=== PATIENT | male | born 2000 | race African-American/Black ===

== ENCOUNTER 2021-10-26 11:52 | Emergency (ER) | payer SELFPAY ==
[~2021-10-26] VITALS: Ht 180.3 cm; Wt 111.0 kg
[2021-10-26] VITALS (7 sets, daily range): BP systolic 46–128; BP diastolic 31–91
[2021-10-26] MEDS ORDERED: ZOFRAN4 MG/TAB PO (13:43)
== END 2021-10-26 14:45 | disposition home or self-care (01) | DRG 392 ==
LOC: ED 11:52
DX: R11.2 Nausea with vomiting, unspecified (principal); J02.9 Acute pharyngitis, unspecified; R05.9 Cough, unspecified; F17.210 Nicotine dependence, cigarettes, uncomplicated; Z20.822 Contact with and (suspected) exposure to COVID-19

== ENCOUNTER 2021-11-29 16:01 | Emergency (ER) | payer SELFPAY ==
[~2021-11-29] VITALS: Ht 180.3 cm; Wt 121.0 kg
[2021-11-29] VITALS (7 sets, daily range): BP systolic 120–136; BP diastolic 63–94
[~2021-11-29 16:01] MED LIST: ZOFRAN4 MG/TAB PO
[2021-11-29 16:35] LABS: URINE BILIRUBIN - DIPSTICK NEGATIVE (NEGATIVE); URINE BLOOD DIPSTICK NEGATIVE (NEGATIVE); URINE COLOR YELLOW; URINE GLUCOSE - DIPSTICK NEGATIVE (NEGATIVE); URINE KETONE NEGATIVE (NEGATIVE); URINE LEUK ESTERASE NEGATIVE (NEGATIVE); URINE PROTEIN - DIPSTICK NEGATIVE (NEG-TRACE); URINE SPECIFIC GRAVITY 1.015; URINE UROBILINOGEN - DIPSTICK 0.2 E.U./dL (0.2)
[2021-11-29 16:35] LABS: IMMATURE GRANULOCYTES 0.3 % (0.0-5.0); MEAN CORPUSCULAR HGB 27.9 pG CALC (26.0-32.0); NEUT# 9.08 thou/uL (1.82-7.42); RED BLOOD COUNT 5.55 mill/uL (4.70-6.10); RED CELL DISTRI WIDTH 12.9 % (11.5-15.5)
[2021-11-29 16:36] LABS: HEMATOCRIT 46.9 % (39.0-50.0); HEMOGLOBIN 15.5 g/dl (14.0-18.0); MEAN CELL VOLUME 84.5 fL CALC (80.0-100.0)
[2021-11-29 16:39] LABS: URINE NITRITE - DIPSTICK NEGATIVE (Negative)
[2021-11-29 16:54] LABS: ALBUMIN 4.9 g/dL (3.2-5.0); ALKALINE PHOSPHATASE 76 u/l (38-126); ANION GAP 12 (6-22 (CALC)); BILIRUBIN, TOTAL 0.4 mg/dL (0.0-1.4); BUN 8 mg/dL (9-20); BUN/CREATININE RATIO 10 (12-20 (CALC)); CARBON DIOXIDE 29 mmol/l (22-30); CHLORIDE 104 mmol/l (95-108); CREATININE 0.9 mg/dL (0.7-1.3); GFR FOR AFR.AMER. > 60 ML/MIN (>=60 (CALC)); GFR OTHER RACES > 60 ML/MIN (>=60 (CALC)); LIPASE 28 u/l (23-300); POTASSIUM 4.5 mmol/l (3.5-5.1); SGOT/AST 26 u/l (17-59); SODIUM 140 mmol/l (137-146); TOTAL PROTEIN 8.1 g/dL (6.3-8.2)
[2021-11-29] MEDS ORDERED: NAPROXEN500 MG PO (18:50)
== END 2021-11-29 19:01 | disposition home or self-care (01) | DRG 392 ==
LOC: ED 16:01
PROVIDERS: Nurse Practitioner
DX: R10.32 Left lower quadrant pain (principal); F17.200 Nicotine dependence, unspecified, uncomplicated

== ENCOUNTER 2022-03-02 11:19 | Emergency (ER) | payer SELFPAY ==
[~2022-03-02] VITALS: Ht 180.3 cm; Wt 112.0 kg
[~2022-03-02 11:19] MED LIST changes: +NAPROXEN500 MG PO
[2022-03-02 11:24] VITALS: BP 140/85
[2022-03-02 11:30] VITALS: BP 140/96
[2022-03-02] MEDS ORDERED: ZOFRAN4 MG/TAB PO (12:17)
[2022-03-02 12:18] VITALS: BP 140/96
== END 2022-03-02 12:24 | disposition home or self-care (01) | DRG 392 ==
LOC: ED 11:19
DX: R11.2 Nausea with vomiting, unspecified (principal); R51.9 Headache, unspecified; R10.84 Generalized abdominal pain

== ENCOUNTER 2022-03-18 16:40 | Emergency (ER) | payer SELFPAY ==
[~2022-03-18] VITALS: Ht 170.2 cm; Wt 118.0 kg
[2022-03-18 17:00] VITALS: BP 110/80
== END 2022-03-18 18:55 | disposition home or self-care (01) | DRG 392 ==
LOC: ED 16:40
DX: R19.7 Diarrhea, unspecified (principal); Z20.822 Contact with and (suspected) exposure to COVID-19; R11.10 Vomiting, unspecified; F17.290 Nicotine dependence, other tobacco product, uncomplicated

== ENCOUNTER 2022-04-02 10:45 | Emergency (ER) | payer SELFPAY ==
[~2022-04-02] VITALS: Ht 170.2 cm; Wt 106.8 kg
[2022-04-02 11:04] VITALS: BP 104/67
[2022-04-02 11:22] LABS: BASO% 0.3 % (0-3); EOS% 1.9 % (0-8); HEMATOCRIT 42.9 % (39.0-50.0); HEMOGLOBIN 14.3 g/dl (14.0-18.0); IMMATURE GRANULOCYTES 0.8 % (0.0-5.0); LYMPH% 16.4 % (15-41); MEAN CELL VOLUME 84.6 fL CALC (80.0-100.0); MEAN CORPUSCULAR HGB 28.2 pG CALC (26.0-32.0); MEAN CORPUSCULAR HGB CONC 33.3 g/dL CAL (32.0-36.0); MONO% 11.3 % (2-13); NEUT# 8.05 thou/uL (1.82-7.42); NEUT% 69.3 % (42-76); RED BLOOD COUNT 5.07 mill/uL (4.70-6.10)
[2022-04-02 11:36] LABS: ALBUMIN 4.1 g/dL (3.2-5.0); ALKALINE PHOSPHATASE 77 u/l (38-126); ANION GAP 8 (6-22 (CALC)); BILIRUBIN, TOTAL 0.3 mg/dL (0.0-1.4); BUN 10 mg/dL (9-20); BUN/CREATININE RATIO 12 (12-20 (CALC)); CARBON DIOXIDE 30 mmol/l (22-30); CHLORIDE 104 mmol/l (95-108); CREATININE 0.9 mg/dL (0.7-1.3); GFR FOR AFR.AMER. > 60 ML/MIN (>=60 (CALC)); GFR OTHER RACES > 60 ML/MIN (>=60 (CALC)); POTASSIUM 4.3 mmol/l (3.5-5.1); SGOT/AST 33 u/l (17-59); SODIUM 138 mmol/l (137-146); TOTAL PROTEIN 6.9 g/dL (6.3-8.2)
[2022-04-02 12:51] VITALS: BP 104/67
== END 2022-04-02 13:00 | disposition home or self-care (01) | DRG 313 ==
LOC: ED 10:45
PROVIDERS: Family Medicine
DX: R07.9 Chest pain, unspecified (principal)

== ENCOUNTER 2024-07-06 11:54 | Emergency (ER) | payer SELFPAY ==
[~2024-07-06] VITALS: Ht 170.2 cm; Wt 139.8 kg
[2024-07-06 12:05] VITALS: BP 129/80
[2024-07-06 12:51] LABS: URINE BILIRUBIN - DIPSTICK Negative (NEGATIVE); URINE BLOOD DIPSTICK Negative (NEGATIVE); URINE GLUCOSE - DIPSTICK Negative (NEGATIVE); URINE KETONE Negative (NEGATIVE); URINE LEUK ESTERASE Negative (NEGATIVE); URINE NITRITE - DIPSTICK Negative (Negative); URINE PROTEIN - DIPSTICK >=300 mg/dL (NEG-TRACE); URINE SPECIFIC GRAVITY >=1.030; URINE UROBILINOGEN - DIPSTICK 0.2 E.U./dL (0.2)
[2024-07-06 13:02] LABS: URINE COLOR Yellow
[2024-07-06 14:14] LABS: URINE RBC 0-2 RBC/hpf (0-5)
[2024-07-06 14:15] LABS: URINE SQUAMOUS EPITHELIAL CELL FEW EPI/hpf (0-FEW)
[2024-07-06 14:16] LABS: URINE HYALINE CAST MODERATE lpf (NONE-RARE)
[2024-07-06 14:20] LABS: URINE MUCUS FEW hpf (NONE-FEW)
[2024-07-06] MEDS ORDERED: LIDOcaine HCl 1% (Local Anesth.) 20 ML VIAL IM STA (14:33)
[2024-07-06] MEDS ORDERED: DOXYCYC MONO100 M3 PO (14:34)
[2024-07-06] MEDS ORDERED: METRONIDAZOLE500 MG PO (14:34)
[2024-07-06] MEDS ORDERED: cefTRIAXone SODIUM 1 GM/VIAL SDV IM ONE (14:35)
[2024-07-06 15:13] VITALS: BP 129/80
== END 2024-07-06 15:14 | disposition home or self-care (01) | DRG 951 ==
LOC: ED 11:54
PROVIDERS: Family Medicine
DX: Z20.2 Contact with and (suspected) exposure to infections with a predominantly sexual mode of transmission (principal); Z72.0 Tobacco use
CPT/HCPCS: J0696